=== PATIENT | female | born 1985 | race Caucasian/White ===

== ENCOUNTER 2018-05-01 09:19 | Emergency (ER) | payer OTHER ==
[2018-05-01] MEDS: IBUPROFEN 600 MG TAB PO (10:43)
[2018-05-01] MEDS: DEXAMETHASONE 4 MG TAB PO (10:43)
== END 2018-05-01 12:14 | disposition home or self-care (01) ==
LOC: FTE 09:19
DX: H92.01 Otalgia, right ear (principal)
CPT/HCPCS: 99283; Z7502